=== PATIENT | male | born 1960 | race Caucasian/White ===

== ENCOUNTER 2021-06-13 12:17 | Emergency (ER) | payer OTHER ==
--- NOTE | 2021-06-13 14:11 | EDPHYS ---
Physician Documentation [facility] Name: Corey Irene Age: 60 yrs Sex: Male : 1960 Arrival Date: 06/13/2021 Time: 13:06 Bed 19 Private MD: ED Physician Sumeet Traore HPI: 06/13 14:07 This 60 yrs old Male presents to ER via Ambulatory with complaints of Left groin pain. pm1 14:07 The patient presents with swelling, of the left inguinal area, due to hernia. Onset: pm1 The symptoms/episode began/occurred Hernia present for approximately 3 months, but has been painful for the past 2 days. Patient reports easily reduced by himself. Modifying factors: The symptoms are alleviated by Self reduction, the symptoms are aggravated by nothing. Associated signs and symptoms: The patient has no apparent associated signs or symptoms, Pertinent negatives: abdominal pain, fever, nausea, vomiting. Severity of symptoms: in the emergency department the symptoms have resolved. The patient has experienced similar episodes in the past, multiple times. The patient has been recently seen by a physician: with similar presenting complaints, and apparently [facility] a diagnosis [facility] and has appointment with general surgeon to address the issue with surgery electively. Historical: - Allergies: 13:16 CODINE; iw - Immunization history:: Client reports receiving the 2nd dose of the Covid vaccine, Flu vaccine is up to date. - Social history:: Smoking status: Patient denies any tobacco usage or history of. - Coronavirus screen:: The patient has NOT traveled to [place] in the past 14 days. Proceed with normal triage process as indicated. ROS: 14:07 Constitutional: Negative for fever, chills, and weight loss, Cardiovascular: Negative pm1 for chest pain, palpitations, and edema, Respiratory: Negative for shortness of breath, cough, wheezing, and pleuritic chest pain, Abdomen/GI: Negative for abdominal pain, nausea, vomiting, diarrhea, and constipation, Back: Negative for injury and pain, MS/Extremity: Negative for injury and deformity, Skin: Negative for injury, rash, and discoloration, Neuro: Negative for headache, weakness, numbness, tingling, and seizure. 14:07 All other systems are negative. Exam: 14:07 Constitutional: This is a well developed, well nourished patient who is awake, alert, pm1 and in no acute distress. Head/Face: Normocephalic, atraumatic. 14:07 Back: No spinal tenderness. No costovertebral tenderness. Full range of motion. Skin: Warm, dry with normal turgor. Normal color with no rashes, no lesions, and no evidence of cellulitis. MS/ Extremity: Pulses equal, no cyanosis. Neurovascular intact. Full, normal range of motion. 14:07 Cardiovascular: Exam negative for acute changes, Rate: normal, Rhythm: regular, Pulses: no pulse deficits are appreciated. 14:07 Respiratory: Exam negative for acute changes, respiratory distress, shortness of breath. 14:07 Abdomen/GI: Inspection: abdomen appears normal, Hernia: noted in the left inguinal area, incarceration, is not appreciated, tenderness, is not appreciated, easily reduced. 14:07 Neuro: Exam negative for acute changes, Orientation: is normal, Mentation: is normal, Motor: is normal, moves all fours. Vital Signs: 13:13 BP 124 / 83; Pulse 81; Resp 16; Temp 97.1; Pulse Ox 99% on R/A; Weight 97.07 kg; Height iw 5 ft. 11 in. (180.34 cm); Pain 9/10; 13:18 BP 124 / 83; Pulse 89; Resp 16; Temp 97.1; Pulse Ox 99% on R/A; iw 13:13 Body Mass Index 29.85 (97.07 kg, 180.34 cm) iw MDM: 14:07 Patient medically screened. [facility] 14:07 Data reviewed: vital signs. Data interpreted: Pulse oximetry: on room air is 99 %. pm1 Interpretation: normal. 14:07 Refusal of service: The patient/guardian displays adequate decision making capability pm1 and despite a detailed discussion of alternatives, benefits, risks, and consequences refuses: CT Scan, all lab tests. 14:07 ED course: Patient does not want any work up. I reduced the inguinal hernia without any pm1 difficulty or pain and the patient refused CT and lab work up because he [facility] an [facility] He is requesting pain medication management until he sees the surgeon. He would like tramadol as a prescription. 14:07 ED course: PMPaware reviewed. pm1 Administered Medications: 14:26 Drug: traMADol 50 mg Route: PO; ae4 14:35 Follow up: Response: Medication administered at discharge. ae4 Disposition: 06/14 04:37 Co-signature as Attending Physician, Sumeet Traore MD I agree with the assessment and jorge plan of care. Disposition Summary: 06/13/21 14:11 Discharge Ordered Location: Home pm1 Problem: new pm1 Symptoms: have improved pm1 Condition: Stable pm1 Diagnosis - Unilateral inguinal hernia, without obstruction or gangrene pm1 Followup: pm1 - With: Emergency Department - When: As needed - Reason: Worsening of condition Followup: pm1 - With: Private Physician - When: 2 - 3 days - Reason: Recheck today's complaints, Continuance of care, Re-evaluation by your physician Discharge Instructions: - Discharge Summary Sheet pm1 - Inguinal Hernia, Adult pm1 Forms: - Medication Reconciliation Form pm1 - Thank You Letter pm1 - Antibiotic Education pm1 - Prescription Opioid Use pm1 Prescriptions: - Tramadol 50 mg Oral Tablet - take 1 tablet by ORAL route every 8 hours as needed; 12 tablet; Refills: 0, pm1 Product Selection Permitted Signatures: Sumeet Traore MD MD cha Williams, Irene, RN Corky Chase NP GEODESIST pm1 Blas Barboza RN RN ae4
--- NOTE | 2021-06-13 14:11 | ER ---
Nurse's Notes [facility] Name: Corey Irene Age: 60 yrs Sex: Male : 1960 Arrival Date: 06/13/2021 Time: 13:06 Bed 19 Private MD: Diagnosis: Unilateral inguinal hernia, without obstruction or gangrene Presentation: 06/13 13:13 Chief complaint: Patient states: PT COMPLAINING OF HERNIA PAIN LEFT SIDE LAST 2DAYS. iw Coronavirus screen: Client denies travel out of the [place] in the last 14 days. At this time, the client does not indicate any symptoms associated with coronavirus-19. Initial Sepsis Screen: Does the patient meet any 2 criteria?. Onset of symptoms was June 10, 2021. 13:13 Method Of Arrival: Ambulatory 13:13 Acuity: DORA 4 iw 13:23 Ebola Screen: Patient negative for fever greater than or equal to 101.5 degrees iw Fahrenheit, and additional compatible Ebola Virus Disease symptoms Patient denies exposure to infectious person. Patient denies travel to an Ebola-affected area in the 21 days before illness onset. No symptoms or risks identified at this time. Initial Sepsis Screen: Does the patient have a suspected source of infection? No. Patient's initial sepsis screen is negative. Risk Assessment: Do you want to hurt yourself or someone else? Patient reports no desire to harm self or others. 13:23 Acuity: DORA 3 iw Triage Assessment: 13:17 Pain: Musculoskeletal: Reports pain in abdomen Pain is 9 out of 10 on a pain scale. iw Historical: - Allergies: 13:16 CODINE; iw - Immunization history:: Client reports receiving the 2nd dose of the Covid vaccine, Flu vaccine is up to date. - Social history:: Smoking status: Patient denies any tobacco usage or history of. - Coronavirus screen:: The patient has NOT traveled to [place] in the past 14 days. Proceed with normal triage process as indicated. Screenin:37 Abuse screen: Denies threats or abuse. Nutritional screening: No deficits noted. ae4 Tuberculosis screening: No symptoms or risk factors identified. Fall Risk None identified. Assessment: 13:49 Reassessment: Patient reports he has a hernia. General: Appears in no apparent ae4 distress. uncomfortable, Behavior is calm, cooperative. Pain: Complains of pain in left femoral area, left inguinal area and left iliac crest Pain currently is 8 out of 10 on a pain scale. Neuro: Level of Consciousness is awake, alert, obeys commands, Oriented to person, place, time, situation, Appropriate for age. Cardiovascular: Patient's skin is warm and dry. Respiratory: Airway is patent Respiratory effort is even, unlabored, Respiratory pattern is regular. GI: No signs and/or symptoms were reported involving the gastrointestinal system. : No signs and/or symptoms were reported regarding the genitourinary system. EENT: No signs and/or symptoms were reported regarding the EENT system. Derm: No signs and/or symptoms reported regarding the dermatologic system. Musculoskeletal: No signs and/or symptoms reported regarding the musculoskeletal system. Vital Signs: 13:13 BP 124 / 83; Pulse 81; Resp 16; Temp 97.1; Pulse Ox 99% on R/A; Weight 97.07 kg; Height iw 5 ft. 11 in. (180.34 cm); Pain 9/10; 13:18 BP 124 / 83; Pulse 89; Resp 16; Temp 97.1; Pulse Ox 99% on R/A; iw 13:13 Body Mass Index 29.85 (97.07 kg, 180.34 cm) iw ED Course: 13:06 Patient arrived in ED. mr 13:16 Triage completed. iw 13:49 Andre Montague is Primary Nurse. al4 13:50 Corky Tong NP is PHCP. pm1 13:50 Sumeet Traore MD is Attending Physician. pm1 14:38 Bed in low position. Call light in reach. Side rails up X 1. ae4 14:39 Arm band placed on right wrist. ae4 14:39 No provider procedures requiring assistance completed. Patient did not have IV access ae4 during this emergency room visit. Administered Medications: 14:26 Drug: traMADol 50 mg Route: PO; ae4 14:35 Follow up: Response: Medication administered at discharge. ae4 Outcome: 14:11 Discharge ordered by . pm1 14:39 Discharged to home ambulatory. ae4 14:39 Condition: stable 14:39 Discharge instructions given to patient, Instructed on discharge instructions, follow up and referral plans. medication usage, Demonstrated understanding of instructions, Prescriptions given X 1. 14:39 Patient left the ED. ae4 Signatures: Gisela Lauren Irene, RN RN iw Corky Tong, AUTOMATIC LOG CUT OFF SAWYER AUTOMATIC LOG CUT OFF SAWYER pm1 Blas Barboza RN RN ae4 Andre Montague
[2021-06-13] MEDS ORDERED: TRAMADOL HCL 50 MG TAB ONE (14:22)
[2021-06-13 14:45] VITALS: BP 124/83; TEMP 97.1; O2SAT 99
== END 2021-06-13 14:39 | disposition home or self-care (01) ==
LOC: ER 12:17
DX: K40.90 Unilateral inguinal hernia, without obstruction or gangrene, not specified as recurrent (principal); Z88.6 Allergy status to analgesic agent
CPT/HCPCS: 99283

== ENCOUNTER 2021-06-21 11:38 | Emergency (ER) | payer OTHER ==
--- NOTE | 2021-06-21 12:04 | ER ---
Nurse's Notes [facility] Name: Corey Irene Age: 60 yrs Sex: Male : 1960 Arrival Date: 06/21/2021 Time: 11:39 Bed 6 Private MD: Diagnosis: Unilateral inguinal hernia, without obstruction or gangrene-left Presentation: 06/21 11:44 Chief complaint: Patient states: Left inguinal hernia pain. Scheduled for hernia repair ww on 07/14/2021 at the [facility]. Denies any constipation. Coronavirus screen: Vaccine status: Patient reports receiving the 2nd dose of the covid vaccine. Client denies travel out of the [place] in the last 14 days. Ebola Screen: Patient negative for fever greater than or equal to 101.5 degrees Fahrenheit, and additional compatible Ebola Virus Disease symptoms Patient denies exposure to infectious person. Initial Sepsis Screen: Does the patient meet any 2 criteria? No. Patient's initial sepsis screen is negative. Does the patient have a suspected source of infection? No. Patient's initial sepsis screen is negative. Risk Assessment: Do you want to hurt yourself or someone else? Patient reports no desire to harm self or others. Onset of symptoms is unknown. 11:44 Method Of Arrival: Ambulatory ww 11:44 Acuity: DORA 3 ww Triage Assessment: 11:46 General: Appears in no apparent distress. Behavior is calm, cooperative, appropriate ww for age. Pain: Complains of pain in left femoral area to upper abdominal. EENT: No deficits noted. No signs and/or symptoms were reported regarding the EENT system. Neuro: No deficits noted. Level of Consciousness is awake, alert, obeys commands, Oriented to person, place, time, situation. Cardiovascular: No deficits noted. Denies chest pain. Respiratory: No deficits noted. Airway is patent Respiratory effort is even, unlabored, Respiratory pattern is regular, symmetrical. GI: Abdomen is tender to palpation lower left abdominal pain. : No deficits noted. No signs and/or symptoms were reported regarding the genitourinary system. Derm: No deficits noted. No signs and/or symptoms reported regarding the dermatologic system. Musculoskeletal: No deficits noted. No signs and/or symptoms reported regarding the musculoskeletal system. Historical: - Allergies: 11:46 codine; ww - Home Meds: 11:46 atorvastatin 10 mg oral tab [Active]; Lisinopril Oral [Active]; ww - PMHx: 11:46 Hypertensive disorder; hyperlipidemia; ww - Immunization history:: Client reports receiving the 2nd dose of the Covid vaccine. - Social history:: Smoking status: Patient denies any tobacco usage or history of. - Family history:: not pertinent. Screenin:48 Abuse screen: Denies threats or abuse. Denies injuries from another. Nutritional ww screening: No deficits noted. Tuberculosis screening: No symptoms or risk factors identified. Fall Risk None identified. Assessment: 11:49 General: Appears in no apparent distress. well groomed, Behavior is calm, cooperative, tw2 appropriate for age. General: pt ambulatory to exam room NAD. Pain: Complains of pain in left femoral area. Neuro: Level of Consciousness is awake, alert, obeys commands. Cardiovascular: Patient's skin is warm and dry. Respiratory: Airway is patent Respiratory effort is even, unlabored, Respiratory pattern is regular, symmetrical. GI: No signs and/or symptoms were reported involving the gastrointestinal system. : No signs and/or symptoms were reported regarding the genitourinary system. Musculoskeletal: Range of motion: intact in all extremities. 12:09 Reassessment: Patient appears in no apparent distress at this time. No changes from tw2 previously documented assessment. Patient and/or family updated on plan of care and expected duration. Pain level reassessed. Patient is alert, oriented x 3, equal unlabored respirations, skin warm/dry/pink. Vital Signs: 11:44 BP 142 / 87; Pulse 61; Resp 18; Temp 97.7; Pulse Ox 97% on R/A; Weight 97.52 kg; Height ww 5 ft. 11 in. (180.34 cm); Pain 7/10; 11:44 Body Mass Index 29.99 (97.52 kg, 180.34 cm) ww ED Course: 11:39 Patient arrived in ED. am2 11:46 Triage completed. ww 11:46 Arm band placed on right wrist. ww 11:49 Caryn Adair RN is Primary Nurse. tw2 11:49 Abelardo Huynh MD is Attending Physician. ma2 11:51 Bed in low position. Call light in reach. tw2 12:09 No provider procedures requiring assistance completed. Patient did not have IV access tw2 during this emergency room visit. Administered Medications: No medications were administered Outcome: 12:03 Discharge ordered by . [email or web address] 12:09 Discharged to home ambulatory. tw2 12: Condition: stable 12:09 Discharge instructions given to patient, Instructed on discharge instructions, follow up and referral plans. no drinking with medication, no driving heavy equipment, medication usage, Demonstrated understanding of instructions, follow-up care, medications, Prescriptions given X 1. 12:10 Patient left the ED. tw2 Signatures: Caryn Adair RN RN tw2 Stephanie Vazquez Mohammad, MD MD ma2 Tatyana Joseph RN RN ww
--- NOTE | 2021-06-21 12:04 | EDPHYS ---
Physician Documentation [facility] Name: Corey Irene Age: 60 yrs Sex: Male : 1960 Arrival Date: 06/21/2021 Time: 11:39 Bed 6 Private MD: ED Physician Abelardo Huynh HPI: 06/21 12:00 This 60 yrs old Male presents to ER via Ambulatory with complaints of Groin Pain. ma2 12:00 Patient has left direct inguinal hernia for years, he is scheduled for surgery this ma2 week and few days. He is here because he needs prescription for tramadol, because his hernia hurt. Pain was constant for few months, unchanged, he used to have tramadol that was . He does not have a refill. Unable to contact [facility] doctor [facility]. To get refill. Patient said that there is no new symptoms or any changes, no redness. He said that he is able to push the hernia back. He does not want any testing for hernia or abdomen or blood work, he also declined my offer for pain medication in ER.. Historical: - Allergies: 11:46 codine; ww - Home Meds: 11:46 atorvastatin 10 mg oral tab [Active]; Lisinopril Oral [Active]; ww - PMHx: 11:46 Hypertensive disorder; hyperlipidemia; ww - Immunization history:: Client reports receiving the 2nd dose of the Covid vaccine. - Social history:: Smoking status: Patient denies any tobacco usage or history of. - Family history:: not pertinent. ROS: 12:00 Constitutional: Negative for fever, chills, and weight loss. ma2 12:00 All other systems are negative. Exam: 12:00 Constitutional: This is a well developed, well nourished patient who is awake, alert, ma2 and in no acute distress. Chest/axilla: Normal chest wall appearance and motion. Nontender with no deformity. No lesions are appreciated. Cardiovascular: Regular rate and rhythm with a normal S1 and S2. No gallops, murmurs, or rubs. Normal PMI, no JVD. No pulse deficits. Respiratory: Lungs have equal breath sounds bilaterally, clear to auscultation and percussion. No rales, rhonchi or wheezes noted. No increased work of breathing, no retractions or nasal flaring. Abdomen/GI: Soft, non-tender, with normal bowel sounds. No distension or tympany. No guarding or rebound. No evidence of tenderness throughout. Skin: Warm, dry with normal turgor. Normal color with no rashes, no lesions, and no evidence of cellulitis. MS/ Extremity: Pulses equal, no cyanosis. Neurovascular intact. Full, normal range of motion. Neuro: Awake and alert, GCS 15, oriented to person, place, time, and situation. Cranial nerves II-XII grossly intact. Motor strength 5/5 in all extremities. Sensory grossly intact. Cerebellar exam normal. Normal gait. 12:00 Abdomen/GI: Soft, non-tender, with normal bowel sounds. No distension or tympany. No guarding or rebound. No evidence of tenderness throughout. 12:00 Abdomen/GI: Inspection: abdomen appears normal, distension, that is mild, Bowel sounds: normal, Palpation: abdomen is soft and non-tender, soft, no appreciated organomegaly, Hernia: noted in the left inguinal area, incarceration, is not appreciated, tenderness, is not appreciated, bowel sounds are appreciated on auscultation. Vital Signs: 11:44 BP 142 / 87; Pulse 61; Resp 18; Temp 97.7; Pulse Ox 97% on R/A; Weight 97.52 kg; Height ww 5 ft. 11 in. (180.34 cm); Pain 7/10; 11:44 Body Mass Index 29.99 (97.52 kg, 180.34 cm) ww MDM: 11:50 Patient medically screened. ma2 12:02 Differential diagnosis: Left inguinal hernia, other differential include direct versus ma2 indirect hernia, there is no incarceration, there is no strangulation. No acute pain, other differential include UTI, extremely unlikely. Patient stated he declined blood work CT, or pain medication in the ER. He only asked for prescription of tramadol. Data reviewed: vital signs, nurses notes, EMS record. Counseling: I had a detailed discussion with the patient and/or guardian regarding: the historical points, exam findings, and any diagnostic results supporting the discharge/admit diagnosis, the presence of at least one elevated blood pressure reading (>120/80) during this emergency department visit, the need for outpatient follow up. Response to treatment: the patient's symptoms have mildly improved after treatment. Administered Medications: No medications were administered Disposition Summary: 06/21/21 12:03 Discharge Ordered Location: Home ma2 Condition: Stable ma2 Diagnosis - Unilateral inguinal hernia, without obstruction or gangrene - left ma2 Followup: ma2 - With: Private Physician - When: Tomorrow - Reason: Continuance of care Discharge Instructions: - Discharge Summary Sheet ma2 - Hernia, Adult, [id number] ma2 Forms: - Medication Reconciliation Form ma2 - Thank You Letter ma2 - Antibiotic Education ma2 - Prescription Opioid Use ma2 Prescriptions: - Tramadol 50 mg Oral Tablet - take 1 tablet by ORAL route every 8 hours as needed; 12 tablet; Refills: 0, ma2 Product Selection Permitted Signatures: Dispatcher [employer] EDMS Abelardo Huynh MD MD de2 Tatyana Joseph RN RN ww Corrections: (The following items were deleted from the chart) 12:00 11:56 IV Saline Lock ordered. ma2 ma2 12:00 11:56 Urine Dipstick-Ancillary ordered. ma2 ma2 12:03 11:56 Labs collected and sent ordered. ma2 ss 12:06 11:57 CBC+H.LAB.BRZ ordered. EDMS EDMS 12:07 11:57 BASIC METABOLIC PANEL+C.LAB.BRZ ordered. EDMS EDMS 12:07 11:57 HEPATIC FUNCTION+C.LAB.BRZ ordered. EDMS EDMS 12:07 11:57 LIPASE+C.LAB.BRZ ordered. EDMS EDMS
[2021-06-21 12:17] VITALS: BP 142/87; TEMP 97.7; O2SAT 97
== END 2021-06-21 12:10 | disposition home or self-care (01) ==
LOC: ER 11:38
DX: K40.90 Unilateral inguinal hernia, without obstruction or gangrene, not specified as recurrent (principal); I10 Essential (primary) hypertension
CPT/HCPCS: 99282

== ENCOUNTER 2021-06-30 05:57 | Emergency (ER) | payer OTHER ==
--- NOTE | 2021-06-30 06:38 | EDPHYS ---
Physician Documentation [facility] Name: Corey Irene Age: 60 yrs Sex: Male : 1960 Arrival Date: 06/30/2021 Time: 06:01 Bed 17 Private MD: ED Physician Shahid Banuelos HPI: 06/30 07:49 This 60 yrs old Male presents to ER via Ambulatory with complaints of HERNIA PAIN. jr8 07:49 This is a 60-year-old male patient that presented to the emergency room for medication jr8 refill for pain to his left inguinal region secondary to a hernia. Patient currently under the care of the [facility]. Patient stated that he is scheduled to have surgery on July 14 but ran out of his pain medicine. Continues to have pain to the left inguinal region that comes and goes. [place] requested that he come to the nearest emergency room for evaluation. Historical: - Allergies: 06:07 codine; ll3 - Home Meds: 06:07 atorvastatin 10 mg Oral tab [Active]; lisinopril Oral [Active]; levothyroxine oral 10 ll3 mcg every morning [Active]; - PMHx: 06:07 Hypertensive disorder; ll3 06:12 Hyperlipidemia; kd3 - PSHx: 06:07 Tripple bipass; ll3 - Immunization history:: Client reports receiving the 2nd dose of the Covid vaccine. - Social history:: Smoking status: Patient/guardian denies using tobacco, the patient reports quitting approximately 1 years ago. ROS: 07:49 Eyes: Negative for injury, pain, redness, and discharge, ENT: Negative for injury, jr8 pain, and discharge, Neck: Negative for injury, pain, and swelling, Cardiovascular: Negative for chest pain, palpitations, and edema, Respiratory: Negative for shortness of breath, cough, wheezing, and pleuritic chest pain, Abdomen/GI: Negative for abdominal pain, nausea, vomiting, diarrhea, and constipation, Back: Negative for injury and pain, MS/Extremity: Negative for injury and deformity, Skin: Negative for injury, rash, and discoloration, Neuro: Negative for headache, weakness, numbness, tingling, and seizure. Exam: 07:49 Constitutional: This is a well developed, well nourished patient who is awake, alert, jr8 and in no acute distress. Cardiovascular: Regular rate and rhythm with a normal S1 and S2. No gallops, murmurs, or rubs. Normal PMI, no JVD. No pulse deficits. Respiratory: Lungs have equal breath sounds bilaterally, clear to auscultation and percussion. No rales, rhonchi or wheezes noted. No increased work of breathing, no retractions or nasal flaring. Male : Normal genitalia with no discharge or lesions. 07:49 Abdomen/GI: Inspection: abdomen appears normal, Bowel sounds: active, all quadrants, Palpation: abdomen is soft and non-tender, in all quadrants, Indicators: McBurney's point is not tender, Haile's sign is negative, Rovsing's sign is negative, Liver: tenderness, is not appreciated, Hernia: noted in the left inguinal area, incarceration, is not appreciated, tenderness, is not appreciated. Vital Signs: 06:04 BP 134 / 104; Pulse 67; Resp 15; Temp 97.7(TE); Pulse Ox 99% on R/A; Weight 97.52 kg ll3 (R); Height 5 ft. 11 in. (180.34 cm) (R); Pain 7/10; 06:04 Body Mass Index 29.99 (97.52 kg, 180.34 cm) ll3 MDM: 06:28 Patient medically screened. [facility] 07:49 Data reviewed: vital signs, nurses notes, and as a result, I will discharge patient. jr Data interpreted: Pulse oximetry: on room air is 99 %. Interpretation: normal. Counseling: I had a detailed discussion with the patient and/or guardian regarding: the historical points, exam findings, and any diagnostic results supporting the discharge/admit diagnosis, the need for outpatient follow up, a general surgeon, to return to the emergency department if symptoms worsen or persist or if there are any questions or concerns that arise at home. 07:49 ED course: [facility] accessed. Patient has had 1 other narcotic pain prescription in [facility] the past on 13 June. No other prescriptions in the past. Low likelihood for abuse at this time.. Administered Medications: No medications were administered Disposition Summary: 06/30/21 06:38 Discharge Ordered Location: Home [facility] Problem: new jr8 Symptoms: have improved jr8 Condition: Stable jr8 Diagnosis - Unilateral inguinal hernia, without obstruction or gangrene jr8 Followup: jr8 - With: Private Physician - When: 1 week - Reason: Recheck today's complaints, Continuance of care, Re-evaluation by your physician Discharge Instructions: - Discharge Summary Sheet jr8 - Hernia, Adult jr8 Forms: - Medication Reconciliation Form jr8 - Thank You Letter jr8 - Antibiotic Education jr8 - Prescription Opioid Use jr8 Prescriptions: - Tramadol 50 mg Oral Tablet - take 1 tablet by ORAL route Every night as needed; 16 tablet; Refills: 0, jr8 Product Selection Permitted Signatures: Tex Carrera PA PA jr8 Jessee Joyce RN RN ll3 Marsha Castro RN RN kd3
--- NOTE | 2021-06-30 06:38 | ER ---
Nurse's Notes [facility] Name: Corey Irene Age: 60 yrs Sex: Male : 1960 Arrival Date: 06/30/2021 Time: 06:01 Bed 17 Private MD: Diagnosis: Unilateral inguinal hernia, without obstruction or gangrene Presentation: 06/30 06:04 Chief complaint: Patient states: I ran out of tramadol, c/o left groin hernia pain. ll3 Coronavirus screen: At this time, the client does not indicate any symptoms associated with coronavirus-19. Ebola Screen: No symptoms or risks identified at this time. Initial Sepsis Screen: Does the patient meet any 2 criteria? No. Patient's initial sepsis screen is negative. Does the patient have a suspected source of infection? No. Patient's initial sepsis screen is negative. Risk Assessment: Do you want to hurt yourself or someone else? Patient reports no desire to harm self or others. Onset of symptoms is unknown. 06:04 Method Of Arrival: Ambulatory ll3 06:04 Acuity: DORA 4 ll3 Triage Assessment: 06:07 General: Appears in no apparent distress. uncomfortable, Behavior is calm, cooperative. ll3 Pain: Complains of pain in left inguinal area Pain currently is 7 out of 10 on a pain scale. Historical: - Allergies: 06:07 codine; ll3 - Home Meds: 06:07 atorvastatin 10 mg Oral tab [Active]; lisinopril Oral [Active]; levothyroxine oral 10 ll3 mcg every morning [Active]; - PMHx: 06:07 Hypertensive disorder; ll3 06:12 Hyperlipidemia; kd3 - PSHx: 06:07 Tripple bipass; ll3 - Immunization history:: Client reports receiving the 2nd dose of the Covid vaccine. - Social history:: Smoking status: Patient/guardian denies using tobacco, the patient reports quitting approximately 1 years ago. Screenin:11 Abuse screen: Denies threats or abuse. Denies injuries from another. Nutritional kd3 screening: No deficits noted. Tuberculosis screening: No symptoms or risk factors identified. Fall Risk None identified. Assessment: 06:31 Reassessment: Patient and/or family updated on plan of care and expected duration. Pain kd3 level reassessed. Patient is alert, oriented x 3, equal unlabored respirations, skin warm/dry/pink. Reassessment: MD SPEAKING TO PT AT BEDSIDE. General: Appears in no apparent distress. Behavior is calm, cooperative, appropriate for age. Neuro: Level of Consciousness is awake, alert, obeys commands, Oriented to person, place, time, situation, Appropriate for age. Vital Signs: 06:04 BP 134 / 104; Pulse 67; Resp 15; Temp 97.7(TE); Pulse Ox 99% on R/A; Weight 97.52 kg ll3 (R); Height 5 ft. 11 in. (180.34 cm) (R); Pain 7/10; 06:04 Body Mass Index 29.99 (97.52 kg, 180.34 cm) ll3 ED Course: 06:01 Patient arrived in ED. es 06:07 Triage completed. ll3 06:07 Arm band placed on. ll3 06:11 Marsha Castro, RN is Primary Nurse. kd3 06:12 Patient has correct armband on for positive identification. Bed in low position. Call kd3 light in reach. 06:28 Tex Carrera PA is PHCP. jr8 06:28 Shahid Banuelos MD is Attending Physician. jr8 Administered Medications: No medications were administered Outcome: 06:38 Discharge ordered by . jr8 06:41 Patient left the ED. kd3 Signatures: Shameka Steinberg Tex Carrera PA PA jr8 Jessee Joyce RN RN 3 Marsha Castro RN RN kd3
[2021-06-30 06:48] VITALS: BP 134/104; TEMP 97.7; O2SAT 99
== END 2021-06-30 06:41 | disposition home or self-care (01) ==
LOC: ER 05:57
DX: K40.90 Unilateral inguinal hernia, without obstruction or gangrene, not specified as recurrent (principal); I10 Essential (primary) hypertension; Z88.5 Allergy status to narcotic agent; Z95.1 Presence of aortocoronary bypass graft
CPT/HCPCS: 99281

== ENCOUNTER 2021-07-25 12:28 | Emergency (ER) | payer OTHER ==
[2021-07-25] MEDS ORDERED: MORPHINE 4 MG/ML SYR ONE (13:13)
[2021-07-25] MEDS ORDERED: ONDANSETRON 4 MG/2 ML VIAL ONE (13:13)
[2021-07-25 13:29] LABS: Absolute Lymphocytes (CBC) 4.1 K/uL (0.7-4.9); Hematocrit 23.2 % (39.6-49.0); Lymphocytes % 26.4 % (15.3-44.8); MPV 7.7 fL (7.6-11.3); RBC Red Blood Cell Count 2.46 M/uL (4.33-5.43)
[2021-07-25] MEDS ORDERED: NA CHLORIDE 0.9% 1,000 ML ONE ×2 (13:31→14:26)
[2021-07-25 13:40] LABS: Protime INR 1.16
--- NOTE | 2021-07-25 13:52 | RAD REPORT ---
EXAM DESCRIPTION: RAD - Chest Single View - 07/25/2021 1:36 pm CLINICAL HISTORY: Left groin pain status post hernia repair COMPARISON: No comparisonsChest Single View dated 07/14/2021 FINDINGS: Lines: None. Lungs: No evidence of edema or pneumonia. Pleural: No significant pleural effusions or pneumothorax. Cardiac: The heart size is within normal limits. Bones: No acute fractures. Sternotomy. Other: IMPRESSION: No acute cardiopulmonary disease.
[2021-07-25 14:18] LABS: ALT/SGPT 35 U/L (12-78); AST/SGOT 21 U/L (15-37); Albumin 2.7 g/dL (3.4-5.0); Alkaline Phosphatase 79 U/L (45-117); Amylase 37 U/L (25-115); BUN Blood Urea Nitrogen 25 mg/dL (7-18); Bicarbonate 22 mmol/L (21-32); Bilirubin Direct 0.2 mg/dL (0-0.2); Bilirubin Total 0.7 mg/dL (0.2-1.0); Creatine Phosphokinase 50 U/L (39-308); Glucose Level 170 mg/dL (74-106); Lipase 88 U/L (73-393); Potassium 3.4 mmol/L (3.5-5.1); Protein, Total 6.8 g/dL (6.4-8.2); Sodium Level 136 mmol/L (136-145)
[2021-07-25 14:19] LABS: CKMB Creatine Kinase MB < 1.0 ng/mL (1.0-3.6)
--- NOTE | 2021-07-25 14:53 | RAD REPORT ---
EXAM DESCRIPTION: CTAbdomen Pelvis W Contrast - 07/25/2021 2:40 pm CLINICAL HISTORY: Left groin pain status post hernia repair;Abd pain COMPARISON: No comparisons TECHNIQUE: CT of the abdomen and pelvis was performed. All CT scans are performed using dose optimization technique as appropriate and may include automated exposure control or mA/KV adjustment according to patient size. FINDINGS: Lower chest: Mild circumferential thickened distal esophagus . Liver: No acute abnormality or suspicious lesions. Biliary: No biliary ductal dilatation. Stomach: No significant focal abnormality. Duodenum: No significant focal abnormality. Pancreas: No significant abnormality. Spleen: No significant abnormality. Adrenal: No suspicious lesions. Kidney/ureter: No hydronephrosis. No renal calculi. Retroperitoneum: No retroperitoneal adenopathy. Vascular: No aneurysm. Aortic ectasia. Bowel: No significant focal abnormality. Peritoneum: Postoperative changes from left inguinal hernia repair. 12.2 x 6.5 cm mixed attenuation c ollection in the left inguinal canal. Overlying skin thickening is present. Bladder: Trace bladder gas. Reproductive: No adnexal masses. Bones: No acute fracture. Sternotomy. Bilateral SI joint fusion. Other: n/a IMPRESSION: Mixed attenuation collection in the left inguinal canal/spermatic cord may represent hem atoma. Sterility is indeterminate by CT. Small volume of bladder gas. This could be related to recent instrumentation.
[2021-07-25] MEDS ORDERED: VANCOMYCIN 1 GM/VIAL ONE (15:23)
[2021-07-25] MEDS ORDERED: CEFEPIME 1 GM/VIAL ONE (15:23)
[2021-07-25] MEDS ORDERED: NA CHLORIDE 0.9% 250 ML ONE (15:23)
[2021-07-25] MEDS ORDERED: NA CHLORIDE 0.9% 100 ML IV ONE (15:23)
[2021-07-25] MEDS ORDERED: FENTANYL CITR 100 MCG/2 ML ONE (15:32)
--- NOTE | 2021-07-25 16:22 | ER ---
Nurse's Notes [facility] Name: Corey Irene Age: 60 yrs Sex: Male : 1960 Arrival Date: 07/25/2021 Time: 12:33 Bed 6 Private MD: Diagnosis: Hematoma left groin status post hernia repair, anemia Presentation: 07/25 12:43 Chief complaint: Patient states: L inguinal hernia repair on 07/14, reports increased ph pain since yesterday, swelling below incision site, firm to touch. also states that pot was transferred on 07/15 for NM and had 2 cardiac stents placed, pty currently denies chest pain, reports SOB and weakness. Coronavirus screen: Vaccine status: Patient reports receiving the 2nd dose of the covid vaccine. At this time, the client does not indicate any symptoms associated with coronavirus-19. Ebola Screen: No symptoms or risks identified at this time. Initial Sepsis Screen: Does the patient meet any 2 criteria? RR > 20 per min. HR > 90 bpm. Does the patient have a suspected source of infection? Yes:. Risk Assessment: Do you want to hurt yourself or someone else? Patient reports no desire to harm self or others. Onset of symptoms was July 25, 2021. 12:43 Method Of Arrival: Wheelchair ph 12:43 Acuity: DORA 2 ph Historical: - Allergies: 12:46 codine; ph - Home Meds: 12:46 levothyroxine oral 10 mcg every morning [Active]; atorvastatin 10 mg Oral tab [Active]; ph lisinopril Oral [Active]; Metoprolol Tartrate Oral [Active]; Isosorbide Mononitrate Oral [Active]; - PMHx: 12:46 Hyperlipidemia; Hypertensive disorder; ph - PSHx: 12:46 hernia repair; Tripple bipass; ph - Immunization history:: Adult Immunizations up to date, . - Social history:: Smoking status: unknown. Screenin:42 Abuse screen: Denies threats or abuse. Nutritional screening: No deficits noted. jh6 Tuberculosis screening: No symptoms or risk factors identified. Fall Risk Fall in past 12 months (25 points). IV access (20 points). Gait- Weak (10 pts.). Assessment: 13:21 General: Appears in no apparent distress. uncomfortable, well groomed, well developed, jh6 well nourished, Behavior is calm, cooperative. Pain: Complains of pain in groin and left femoral area Pain currently is 10 out of 10 on a pain scale. Quality of pain is described as dull, shooting, Pain began 2-3 days ago. Is continuous, Aggravated by increased activity, repositioning, heat. GI: No deficits noted. Abdomen is flat, non-distended, bruised on left lower quadrant Abd is soft and non tender. : tenderness to l groin with increased swelling. area hard to touch. no drainage from incision site to l groin. 14:45 Reassessment: Patient and/or family updated on plan of care and expected duration. Pain jh6 level reassessed. Patient is alert, oriented x 3, equal unlabored respirations, skin warm/dry/pink. Patient states symptoms have improved. 14:45 Pain: Complains of pain in groin and left femoral area Pain currently is 5 out of 10 on jh6 a pain scale. 15:30 Reassessment: No changes from previously documented assessment. jh6 17:30 Reassessment: Patient and/or family updated on plan of care and expected duration. Pain jh6 level reassessed. Patient is alert, oriented x 3, equal unlabored respirations, skin warm/dry/pink. pt resting with at bedside. main complaint at this moment is restless leg on l side. Patient states symptoms have improved. 17:40 Reassessment: Patient and/or family updated on plan of care and expected duration. Pain jh6 level reassessed. no reaction noted to blood that was started. pt alert no complaints when asked. 17:40 Pain: Complains of pain in groin and left femoral area. jh6 Vital Signs: 12:43 BP 100 / 67; Pulse 122; Resp 24; Temp 97.9; Pulse Ox 100% on R/A; Weight 95.71 kg; ph Height 5 ft. 11 in. (180.34 cm); 13:25 BP 102 / 71; Pulse 109; Resp 18; Pulse Ox 100% ; Pain 7/10; jh6 13:41 BP 85 / 60; Pulse 87; Resp 18; Pulse Ox 99% ; Pain 6/10; jh6 14:00 BP 93 / 63; Pulse 81; Resp 18; Pulse Ox 97% ; Pain 0/10; jh6 14:20 BP 89 / 53; Pulse 81; Resp 17; Pulse Ox 100% ; jh6 14:40 BP 102 / 63; Pulse 78; Resp 17; Pulse Ox 100% ; Pain 7/10; jh6 15:00 BP 99 / 59; Pulse 77; Resp 17; Temp 97.7(O); Pulse Ox 100% ; Pain 6/10; jh6 15:20 BP 104 / 63; Pulse 76; Resp 17; Pulse Ox 100% ; Pain 0/10; jh6 16:00 BP 93 / 54; Pulse 75; Resp 18; Pulse Ox 100% ; Pain 4/10; jh6 16:30 BP 95 / 53; Pulse 73; Resp 18; Temp 97.8(O); Pulse Ox 100% ; Pain 3/10; jh6 17:00 BP 100 / 61; Pulse 75; Resp 17; Temp 97.8; Pulse Ox 100% ; Pain 0/10; jh6 17:30 BP 100 / 71; Pulse 77; Resp 17; Pulse Ox 100% ; Pain 3/10; jh6 18:00 BP 102 / 66; Pulse 75; Resp 18; Pulse Ox 99% ; Pain 3/10; jh6 12:43 Body Mass Index 29.43 (95.71 kg, 180.34 cm) ph Vitals: 13:41 Cardiac Rhythm Assessment Regular. jh6 ED Course: 12:33 Patient arrived in ED. rg4 12:45 Gio Delvalle MD is Attending Physician. kdr 12:46 Triage completed. ph 13:08 Initial lab(s) drawn, by ma, sent to lab. T\T\S collected, blood band applied to patient. dh3 Inserted saline lock: 20 gauge in left forearm, using aseptic technique. Blood collected. 13:12 EKG done, by ED staff, reviewed by Gio Delvalle MD. mb7 13:16 Yue Valencia, RICHARDSON is Primary Nurse. jh6 13:24 Placed in gown. Bed in low position. Call light in reach. Side rails up X2. Cardiac jh6 monitor on. Pulse ox on. NIBP on. 13:35 Chest Single View XRAY In Process Unspecified. EDMS 13:43 Arm band placed on right wrist. jh6 13:50 Inserted saline lock: 22 gauge in right hand, using aseptic technique. mb7 14:10 First set of blood cultures drawn by me. dh3 14:15 Second set of blood cultures drawn by ma. 3 14:38 initiated a transfer with Sukijessicamichelle from the [facility] transfer center/ faxed over patients eb records to [phone]. 14:40 CT Abd/Pelvis - IV Contrast Only In Process Unspecified. EDMS 16:18 called the [facility] transfer center to check on status of transfer/ per Angela their staff is eb reviewing the chart and will call us back. 16:[address] Mckeon the emergency room doctor extrusion press supervisor for the [facility] with Dr. Adelia abad for patient transfer consultation. 16:37 administrative approval given by Abigail Frank/ patient has been accepted to the [facility] ER/ Dr. Kaylie Mckeon has accepted the patient in transfer/ report to be called to the charge nurse at [phone]. Administered Medications: 13:16 Drug: Zofran (Ondansetron) 4 mg Route: IVP; Site: left forearm; [facility] 13:17 Drug: morphine 4 mg Route: IVP; Site: left forearm; [facility] 14:07 Follow up: Response: No adverse reaction; Pain is decreased [facility] 14:07 Follow up: Response: Pain is decreased [facility] 15:57 Follow up: Response: No adverse reaction; Pain is decreased [facility] 15:57 Follow up: Response: No adverse reaction [facility] 13:30 Drug: NS 0.9% (30 ml/kg) 30 ml/kg Route: IV; Rate: bolus; Site: right hand; [facility] 15:45 Drug: Cefepime 1 grams Route: IVPB; Rate: 200 ml/hr; Infused Over: 30 mins; Site: right jh6 hand; 15:50 Drug: vancoMYCIN 1 grams Route: IVPB; Infused Over: 2 hrs; Site: left forearm; [facility] Outcome: 16:22 ER care complete, transfer ordered by . kdr 18:27 Transferred by ground EMS to [place] [id number] 18:27 Condition: stable 18:27 Instructed on the need for transfer. 18:27 [address] the ED[address] [facility] Signatures: Dispatcher [employer] EDMS Gio Delvalle MD MD kdr Hall, Patricia, RN RN Leana Cope4 Abbey Randle 3 Neli Flowers Jennifer, RN RN jh6 Gay, Gisela 7
--- NOTE | 2021-07-25 16:22 | EDPHYS ---
Physician Documentation [facility] Name: Corey Irene Age: 60 yrs Sex: Male : 1960 Arrival Date: 07/25/2021 Time: 12:33 Bed 6 Private MD: ED Physician Gio Delvalle HPI: 07/25 14:47 This 60 yrs old Male presents to ER via Wheelchair with complaints of Post Surgical kdr Pain. 14:47 The patient presents with abdominal pain. The patient presents with abdominal pain Left kdr groin. Onset: The symptoms/episode began/occurred Last few days. The symptoms do not radiate. Associated signs and symptoms: Pertinent positives: nausea, Pertinent negatives: blood in stools, chest pain, constipation, diarrhea, dysuria, fever, headache, hematuria, palpitations, shortness of breath, testicular pain. The symptoms are described as sharp, steady. Modifying factors: The symptoms are alleviated by nothing, the symptoms are aggravated by jumping, movement, touching the area, walking. Severity of pain: At its worst the pain was mild in the emergency department the pain is actually worse markedly. The patient has not experienced similar symptoms in the past. Hernia repair. The patient had a left inguinal hernia repair on 14 July. Since yesterday he started to have increased pain and swelling at the site of the incision. also indicated that on 15 July, he was transferred after sustaining an [facility]. At that time he had 2 cardiac stents placed. Patient is alert and oriented and appropriate. He does not appear toxic at this time. . Historical: - Allergies: 12:46 codine; ph - Home Meds: 12:46 levothyroxine oral 10 mcg every morning [Active]; atorvastatin 10 mg Oral tab [Active]; ph lisinopril Oral [Active]; Metoprolol Tartrate Oral [Active]; Isosorbide Mononitrate Oral [Active]; - PMHx: 12:46 Hyperlipidemia; Hypertensive disorder; ph - PSHx: 12:46 hernia repair; Tripple bipass; ph - Immunization history:: Adult Immunizations up to date, . - Social history:: Smoking status: unknown. ROS: 14:47 Constitutional: Negative for fever, chills, and weight loss, Eyes: Negative for injury, kdr pain, redness, and discharge, Neck: Negative for injury, pain, and swelling, Cardiovascular: Negative for chest pain, palpitations, and edema, Respiratory: Negative for shortness of breath, cough, wheezing, and pleuritic chest pain, Back: Negative for injury and pain, MS/Extremity: Negative for injury and deformity, Skin: Negative for injury, rash, and discoloration, Neuro: Negative for headache, weakness, numbness, tingling, and seizure activity. Psych: Negative for depression, anxiety, suicide ideation, homicidal ideation, and hallucinations, Allergy/Immunology: Negative for hives, rash, and allergies, Endocrine: Negative for neck swelling, polydipsia, polyuria, polyphagia, and marked weight changes, Hematologic/Lymphatic: Negative for swollen nodes, abnormal bleeding, and unusual bruising. 14:47 Abdomen/GI: Positive for abdominal pain, Left lower quadrant pain and incision. Exam: 14:47 Constitutional: This is a well developed, well nourished patient who is awake, alert, kdr and in no acute distress. Head/Face: Normocephalic, atraumatic. Eyes: Pupils equal round and reactive to light, extra-ocular motions intact. Lids and lashes normal. Conjunctiva and sclera are non-icteric and not injected. Cornea within normal limits. Periorbital areas with no swelling, redness, or edema. Chest/axilla: Normal chest wall appearance and motion. Nontender with no deformity. No lesions are appreciated. Cardiovascular: Regular rate and rhythm with a normal S1 and S2. No gallops, murmurs, or rubs. Normal PMI, no JVD. No pulse deficits. Respiratory: Lungs have equal breath sounds bilaterally, clear to auscultation and percussion. No rales, rhonchi or wheezes noted. No increased work of breathing, no retractions or nasal flaring. Back: No spinal tenderness. No costovertebral tenderness. Full range of motion. 14:47 Abdomen/GI: Inspection: scar(s), are noted in the left lower quadrant, left inguinal region, Bowel sounds: normal, Palpation: soft, nontender, rebound tenderness, is not appreciated, voluntary guarding, is not appreciated, involuntary guarding, is not appreciated. Vital Signs: 12:43 BP 100 / 67; Pulse 122; Resp 24; Temp 97.9; Pulse Ox 100% on R/A; Weight 95.71 kg; ph Height 5 ft. 11 in. (180.34 cm); 13:25 BP 102 / 71; Pulse 109; Resp 18; Pulse Ox 100% ; Pain 7/10; jh6 13:41 BP 85 / 60; Pulse 87; Resp 18; Pulse Ox 99% ; Pain 6/10; 6 14:00 BP 93 / 63; Pulse 81; Resp 18; Pulse Ox 97% ; Pain 0/10; 6 14:20 BP 89 / 53; Pulse 81; Resp 17; Pulse Ox 100% ; jh6 14:40 BP 102 / 63; Pulse 78; Resp 17; Pulse Ox 100% ; Pain 7/10; jh6 15:00 BP 99 / 59; Pulse 77; Resp 17; Temp 97.7(O); Pulse Ox 100% ; Pain 6/10; 6 15:20 BP 104 / 63; Pulse 76; Resp 17; Pulse Ox 100% ; Pain 0/10; 6 16:00 BP 93 / 54; Pulse 75; Resp 18; Pulse Ox 100% ; Pain 4/10; 6 16:30 BP 95 / 53; Pulse 73; Resp 18; Temp 97.8(O); Pulse Ox 100% ; Pain 3/10; 6 17:00 BP 100 / 61; Pulse 75; Resp 17; Temp 97.8; Pulse Ox 100% ; Pain 0/10; 6 17:30 BP 100 / 71; Pulse 77; Resp 17; Pulse Ox 100% ; Pain 3/10; 6 18:00 BP 102 / 66; Pulse 75; Resp 18; Pulse Ox 99% ; Pain 3/10; 6 12:43 Body Mass Index 29.43 (95.71 kg, 180.34 cm) ph MDM: 14:47 Data reviewed: vital signs, nurses notes, lab test result(s), radiologic studies. kdr Counseling: I had a detailed discussion with the patient and/or guardian regarding: the historical points, exam findings, and any diagnostic results supporting the discharge/admit diagnosis, lab results, radiology results, the need to transfer to another facility. 16:22 Patient medically screened. kdr 07/25 13:11 Order name: Amylase, Serum kdr 07/25 13:11 Order name: Basic Metabolic Panel kdr 07/25 13:11 Order name: Blood Culture Adult (2) kdr 07/25 13:11 Order name: CBC with Diff; Complete Time: 13:49 [facility] 07/25 13:11 Order name: CPK; Complete Time: 14:28 kdr 07/25 13:11 Order name: Ckmb; Complete Time: 14:28 kdr 02 13:11 Order name: LFT's; Complete Time: 14:28 kdr 07/25 13:11 Order name: Lactate; Complete Time: 13:49 kdr 07/25 13:11 Order name: Lipase; Complete Time: 14:28 [facility] 07/25 13:11 Order name: Procalcitonin; Complete Time: 14:28 kdr 07/25 13:11 Order name: Protime (+inr); Complete Time: 13:49 [facility] 07/25 13:11 Order name: Ptt, Activated; Complete Time: 13:49 [facility] 07/25 13:11 Order name: Troponin HS; Complete Time: 14:28 [facility] 07/25 13:11 Order name: Chest Single View XRAY; Complete Time: 14:28 [facility] 07/25 13:11 Order name: Amylase; Complete Time: 14:28 [facility] 07/25 13:11 Order name: Basic Metabolic Panel; Complete Time: 14:28 [facility] 07/25 13:11 Order name: Blood Culture [facility] 07/25 13:12 Order name: CT Abd/Pelvis - IV Contrast Only; Complete Time: 15:11 [facility] 07/25 13:28 Order name: Glucose, Ancillary Testing; Complete Time: 13:49 [facility] 07/25 14:28 Order name: PRBC [facility] 07/25 14:28 Order name: ABO/RH typing [facility] 07/25 14:28 Order name: Antibody Screen [facility] 07/25 14:36 Order name: SARS-COV-2 RT PCR (Document "Date of Onset" if Symptomatic) 07/25 14:36 Order name: SARS-COV-2 RT PCR [facility] 07/25 16:06 Order name: Hemoglobin [facility] 07/25 16:09 Order name: ABO/RH no charge [facility] 07/25 16:48 Order name: Lactate Sepsis 2 HR Follow-up [facility] 07/25 13:11 Order name: Accucheck; Complete Time: 13:17 [facility] 07/25 13:11 Order name: Cardiac monitoring; Complete Time: 13:17 [facility] 07/25 13:11 Order name: EKG - Nurse/Tech; Complete Time: 13:12 kdr 07/25 13:11 Order name: IV Saline Lock - Large Bore; Complete Time: 13:17 kdr 07/25 13:11 Order name: Labs collected and sent; Complete Time: 13:17 kdr 07/25 13:11 Order name: O2 Per Protocol; Complete Time: 13:17 kdr 07/25 13:11 Order name: O2 Sat Monitoring; Complete Time: 13:17 kdr 07/25 13:11 Order name: Urine Dipstick-Ancillary (obtain specimen); Complete Time: 13:17 kdr Administered Medications: 13:16 Drug: Zofran (Ondansetron) 4 mg Route: IVP; Site: left forearm; [facility] 13:17 Drug: morphine 4 mg Route: IVP; Site: left forearm; [facility] 14:07 Follow up: Response: No adverse reaction; Pain is decreased [facility] 14:07 Follow up: Response: Pain is decreased [facility] 15:57 Follow up: Response: No adverse reaction; Pain is decreased [facility] 15:57 Follow up: Response: No adverse reaction [facility] 13:30 Drug: NS 0.9% (30 ml/kg) 30 ml/kg Route: IV; Rate: bolus; Site: right hand; 6 15:45 Drug: Cefepime 1 grams Route: IVPB; Rate: 200 ml/hr; Infused Over: 30 mins; Site: right jh6 hand; 15:50 Drug: vancoMYCIN 1 grams Route: IVPB; Infused Over: 2 hrs; Site: left forearm; 6 Disposition Summary: 07/25/21 16:22 Transfer Ordered Transfer Location: [facility] kdr Reason: Higher level of care kdr Condition: Stable kdr Problem: an acute exacerbation kdr Symptoms: have improved kdr Accepting Physician: Dr. Yi. Lott(07/25/21 18:27) 6 Diagnosis - Hematoma left groin status post hernia repair, anemia kdr Forms: - Medication Reconciliation Form kdr - SBAR form kdr Signatures: Dispatcher [employer] EDMS Gio Delvalle MD MD kdr Soco Martínez RN RN Neli Weaver Jennifer, RN RN 6 Corrections: (The following items were deleted from the chart) 16:43 16:22 [facility] kdr eb 18:27 16:43 Dr. Yi. Sorianoua eb jh6
[2021-07-25] MEDS ORDERED: NA CHLORIDE 0.9% 500 ML ONE (17:13)
[2021-07-25 18:50] VITALS: TEMP 97.8
[2021-07-25 18:54] VITALS: BP 102/66; O2SAT 99
== END 2021-07-25 18:27 ==
LOC: ER 12:28
PROC: 30233N1 Transfusion of Nonautologous Red Blood Cells into Peripheral Vein, Percutaneous Approach (ICD-10-PCS; principal; 2021-07-25)
DX: S30.1XXA Contusion of abdominal wall, initial encounter (principal); D64.9 Anemia, unspecified; Z98.890 Other specified postprocedural states; U07.1 COVID-19; E78.5 Hyperlipidemia, unspecified; I10 Essential (primary) hypertension; Z88.5 Allergy status to narcotic agent; Z95.1 Presence of aortocoronary bypass graft
CPT/HCPCS: 93005; 87040 ×2; 85025; 80048; 36415; 82150; 86900; 86850; 82550; 85610; 86901; 82947; 80076; 83605 ×2; 85730; 85018; 84484; 82553; 83690; 84145; 74177; 71045; 99285; 36430; U0003; Q9967; J3010; J3370; P9016; J7050; J7040; J7030 ×2; J2405; J0692